=== PATIENT | male | born 1990 | race American Indian/Alaskan Native ===

== ENCOUNTER 2021-11-18 17:24 | Emergency (ER) | payer SELFPAY ==
[~2021-11-18] VITALS: Ht 175.3 cm; Wt 70.5 kg
[2021-11-18 17:49] VITALS: BP 130/78; TEMP 98.3
[2021-11-18 18:16] VITALS: PULSE 70
== END 2021-11-18 18:25 | disposition home or self-care (01) ==
LOC: COL.ER 17:24
DX: S42.001A Fracture of unspecified part of right clavicle, initial encounter for closed fracture (principal); S60.512A Abrasion of left hand, initial encounter; S60.511A Abrasion of right hand, initial encounter; F17.210 Nicotine dependence, cigarettes, uncomplicated; Z28.310 Unvaccinated for COVID-19; V00.131A Fall from skateboard, initial encounter

== ENCOUNTER 2023-07-01 23:15 | Emergency (ER) | payer SELFPAY ==
[~2023-07-01] VITALS: Ht 180.3 cm; Wt 86.4 kg
[2023-07-01 23:43] LABS: COLLECTION METHOD CLEAN CATCH
[2023-07-01 23:48] LABS: URINE APPEARANCE CLEAR (CLEAR/HAZY); URINE BLOOD NEGATIVE (NEGATIVE); URINE COLOR YELLOW (YELLOW); URINE GLUCOSE NEGATIVE (NEGATIVE); URINE KETONE 1+ (NEGATIVE); URINE NITRATE NEGATIVE (NEGATIVE); URINE PROTEIN(semi-quant) NEGATIVE (NEGATIVE); URINE UROBILINOGEN 0.2 E.U/dL (0.2-1.0)
[2023-07-01 23:57] LABS: TRICYCLIC ANTIDEPRESS URINE NEGATIVE (NEGATIVE)
[2023-07-02 00:15] LABS: BASO # 0.1 K/mm3 (0.0-0.2); BASO % 0.7 % (0.0-2.0); EOS % 0.3 % (0.0-4.0); GRAN # 6.2 K/mm3 (1.4-6.5); GRAN % 65.8 % (42.2-75.2); HEMATOCRIT 39.5 % (42.0-52.0); HEMOGLOBIN 13.7 g/dl (13.5-18.0); LYMPH # 2.2 K/mm3 (1.2-3.4); LYMPH % 23.8 % (20.0-51.0); MEAN CELL VOLUME 88 fl (80.0-100.0); MEAN CORPUSCULAR HEMOGLOBIN 30 pg (27-31); MEAN CORPUSCULAR HGB CONC 35 g/dl (33.0-37.0); MEAN PLATELET VOLUME 11.8 fl (7.4-10.4); MONO # 0.9 K/mm3 (0.1-0.6); PLATELET COUNT 192 K/mm3 (130-400); REDCELL DISTRIBUTION WIDTH-CV 12.6 % (11.5-14.5)
[2023-07-02] MEDS ORDERED: Acetaminophen 325 MG TAB PO ONE (00:15)
[2023-07-02 00:37] LABS: ACETAMINOPHEN < 7.0 ug/mL (10-30); ALANINE AMINOTRANSFERASE 15 U/L (0-55); ALBUMIN 4.1 gm/dL (3.5-5.0); ALCOHOL(ethanol),MEDICAL < 10 mg/dL (0-10); ALKALINE PHOSPHATASE 47 U/L (40-150); ANION GAP 11 mmol/L (7-16); AST,SGOT 35 U/L (5-34); BILIRUBIN,TOTAL 0.6 mg/dL (0.2-1.2); BLOOD UREA NITROGEN 18 mg/dL (9-21); CALCIUM 9.4 mg/dL (8.4-10.2); CARBON DIOXIDE 22 mmol/L (22-29); CHLORIDE 108 mmol/L (98-107); CREATININE, serum 1.03 mg/dL (0.72-1.25); GLUCOSE 93 mg/dL (70-99); POTASSIUM 3.7 mmol/L (3.5-4.5); SALICYLATE < 5.0 mg/dL (15.0-30.0); SODIUM 141 mmol/L (136-145); TOTAL PROTEIN 6.6 gm/dL (6.2-8.1)
[2023-07-02 08:28] VITALS: TEMP 16
[2023-07-02] MEDS ORDERED: Acetaminophen 500 MG TAB PO ONE (08:30)
[2023-07-02] MEDS ORDERED: LORazepam 0.5 MG TAB PO ONE (10:30)
[2023-07-02] MEDS ORDERED: Nicotine 14 MG DAILY PATCH TD ONE (10:30)
[2023-07-02 11:08] VITALS: BP 129/74; PULSE 66
== END 2023-07-02 11:15 ==
LOC: COL.ER 23:15
PROVIDERS: Nurse Practitioner Primary Care
DX: F29 Unspecified psychosis not due to a substance or known physiological condition (principal)